=== PATIENT | male | born 1970 ===

== ENCOUNTER 2018-01-13 12:22 | Emergency (ER) | payer MEDICAID ==
[2018-01-13 12:35] VITALS: BP 135/90; PULSE 100; RESP 18; TEMP 97.9; O2SAT 96
--- NOTE | 2018-01-13 13:07 | C.PDOC ---
History Of Present Illness 47 y/o male presents to the ER requesting detox from heroin. Patient states that he last used heroin 1 hour MOTOR BOSS. Patient does not have any physical complaints. Of note, patient is awake and alert. Time Seen by Provider: 01/13/18 12:35 Chief Complaint (Nursing): Substance Abuse History Per: Patient History/Exam Limitations: no limitations Past Medical History Reviewed: Historical Data, Nursing Documentation, Vital Signs Vital Signs: Last Vital Signs Temp 97.9 F 01/13/18 12:31 Pulse 100 H 01/13/18 12:31 Resp 18 01/13/18 12:31 BP 135/90 01/13/18 12:31 Pulse Ox 96 01/13/18 13:36 - Medical History PMH: Denies: Diabetes, Hepatitis, HIV, HTN, Seizures, Sexually Transmitted Disease Other Surgeries: Hx of surgeries - [facility] Procedures DETOXIFICATION SERVICES FOR SUBSTANCE ABUSE TREATMENT (10/02/16) GROUP SUPERVISOR HOUSECLEANER FOR SUBSTANCE ABUSE TREATMENT, PSYCHOEDUCATION (10/02/16) INJECT/INFUSE NEC (06/26/13) Family History: States: No Known Family Hx - Social History Hx Tobacco Use: No Hx Alcohol Use: No Hx Substance Use: Yes - Immunization History Hx Tetanus Toxoid Vaccination: No Hx Influenza Vaccination: Yes Hx Pneumococcal Vaccination: No Review Of Systems Except As Marked, All Systems Reviewed And Found Negative. Physical Exam - Physical Exam Appears: No Acute Distress, Other (awake and alert, ambulatory) Skin: Normal Color, Warm Head: Atraumatic, Normacephalic Eye(s): bilateral: Normal Inspection Nose: Normal Oral Mucosa: Moist Neck: Supple Chest: Symmetrical Cardiovascular: Rhythm Regular Respiratory: Normal Breath Sounds, No Accessory Muscle Use, No Rales, No Rhonchi , No Wheezing Extremity: Normal ROM Neurological/Psych: Oriented x3, Normal Speech, Normal Motor, Normal Sensation ED Course And Treatment O2 Sat by Pulse Oximetry: 96 (RA) Pulse Ox Interpretation: Normal Progress Note: Patient has been informed that there are no detox beds available. Patient has been told to return to ER at a later date for detox. Disposition - Disposition Referrals: [facility] at [facility] [Outside] Disposition: HOME/ ROUTINE Condition: STABLE Additional Instructions: RETURN TO ER AT LATER DATE TO TRY FOR DETOX OR CALL FOR PRESCREENING [phone] Instructions: Drug Abuse and Drug Addiction (DC) Forms: [employer] (Indian) Print Language: OMANI - Clinical Impression Clinical Impression: Heroin dependence - Scribe Statement The provider has reviewed the documentation as recorded by the Chalinoibe Carlos Paiz Provider Attestation: All medical record entries made by the Chalinoibpapo were at my direction and personally dictated by me. I have reviewed the chart and agree that the record accurately reflects my personal performance of the history, physical exam, medical decision making, and the department course for this patient. I have also personally directed, reviewed, and agree with the discharge instructions and disposition.
--- NOTE | 2018-01-13 13:11 | C.PDOC ---
Time Seen by Provider: 01/13/18 12:35 Chief Complaint (Nursing): Substance Abuse Past Medical History Vital Signs: Last Vital Signs Temp 97.9 F 01/13/18 12:31 Pulse 100 H 01/13/18 12:31 Resp 18 01/13/18 12:31 BP 135/90 01/13/18 12:31 Pulse Ox 96 01/13/18 14:40 - Medical History PMH: Denies: Diabetes, Hepatitis, HIV, HTN, Seizures, Sexually Transmitted Disease - [facility] Procedures DETOXIFICATION SERVICES FOR SUBSTANCE ABUSE TREATMENT (10/02/16) GROUP DIE MOUNTER FOR SUBSTANCE ABUSE TREATMENT, PSYCHOEDUCATION (10/02/16) INJECT/INFUSE NEC (06/26/13) Family History: States: Unknown Family Hx - Social History Hx Tobacco Use: No Hx Alcohol Use: No Hx Substance Use: Yes - Immunization History Hx Tetanus Toxoid Vaccination: No Hx Influenza Vaccination: Yes Hx Pneumococcal Vaccination: No ED Course And Treatment O2 Sat by Pulse Oximetry: 96 Disposition Counseled Patient/Family Regarding: Diagnosis, Need For Followup - Disposition Referrals: [facility] at [facility] [Outside] Disposition: HOME/ ROUTINE Disposition Time: 13:10 Condition: STABLE Additional Instructions: RETURN TO ER AT LATER DATE TO TRY FOR DETOX OR CALL FOR PRESCREENING Instructions: Drug Abuse and Drug Addiction (DC) Forms: [employer] (Citizen Of [place]) Print Language: K[place]I - POA Present On Arrival: None - Clinical Impression Clinical Impression: Heroin dependence
== END 2018-01-13 13:40 | disposition home or self-care (01) ==
LOC: C.ER 12:22
DX: F11.20 Opioid dependence, uncomplicated (principal)

== ENCOUNTER 2018-02-19 09:14 | Inpatient (IN) | payer MEDICAID ==
--- NOTE | 2018-02-19 10:06 | C.PDOC ---
History Of Present Illness Patient presents for Detox fron Heroin. Patient last used prior to arrival using 7-8 bags per day since november. Denies fever Time Seen by Provider: 02/19/18 09:49 Chief Complaint (Nursing): Substance Abuse History Per: Patient History/Exam Limitations: no limitations Onset/Duration Of Symptoms: Unknown Modifying Factor(s): Narcotics Severity: Mild Past Medical History Reviewed: Historical Data, Nursing Documentation, Vital Signs Vital Signs: Last Vital Signs Temp 98.6 F 02/19/18 16:27 Pulse 82 02/19/18 16:27 Resp 18 02/19/18 16:27 BP 148/91 H 02/19/18 16:27 Pulse Ox 99 02/19/18 16:27 - Medical History PMH: No Chronic Diseases Denies: Hepatitis, HIV, HTN Surgical History: No Surg Hx - [facility] Procedures DETOXIFICATION SERVICES FOR SUBSTANCE ABUSE TREATMENT (10/02/16) GROUP SURVEILLANCE MONITOR FOR SUBSTANCE ABUSE TREATMENT, PSYCHOEDUCATION (10/02/16) INJECT/INFUSE NEC (06/26/13) Family History: States: No Known Family Hx - Social History Hx Tobacco Use: No Hx Alcohol Use: No Hx Substance Use: Yes - Immunization History Hx Tetanus Toxoid Vaccination: No Hx Influenza Vaccination: Yes Hx Pneumococcal Vaccination: No Review Of Systems Constitutional: Negative for: Fever Gastrointestinal: Positive for: Nausea Physical Exam - Physical Exam Appears: Well, Non-toxic Skin: Normal Color Head: Atraumatic Throat: Normal Neck: Normal Chest: Symmetrical Cardiovascular: Rhythm Regular Respiratory: Normal Breath Sounds Gastrointestinal/Abdominal: Normal Exam Extremity: Normal ROM Neurological/Psych: Oriented x3 Gait: Steady ED Course And Treatment - Laboratory Results Result Diagrams: 02/19/18 10:28 02/19/18 10:28 Lab Interpretation: Normal O2 Sat by Pulse Oximetry: 97 Pulse Ox Interpretation: Normal Progress Note: Patient evaluated by crisis team and request admission to detox Reassessment Condition: Unchanged - Physician Consult Information Physician Contacted: Ana M Adames Outcome Of Conversation: admit Disposition Discussed With : Ana M Adames Doctor Will See Patient In The: Hospital - Disposition Disposition: HOSPITALIZED Disposition Time: 11:30 Condition: STABLE - POA Present On Arrival: None - Clinical Impression Clinical Impression: Drug abuse Decision To Admit - Pt Status Changed To: Hospital Disposition Of: Inpatient - Admit Certification Admit to Inpatient:: After my assessment, the patient will require hospitalization for at least two midnights. This is because of the severity of symptoms shown, intensity of services needed, and/or the medical risk in this patient being treated as an outpatient. - InPatient: Physician Admission Certification: I certify that this patient requires 2 or more midnights of care for the following reason:: opioid abuse - . Bed Request Type: Detox Admitting Physician: Omkar Villalobos Patient Diagnosis: Drug abuse
[2018-02-19 10:33] LABS: BASO # 0.1 K/uL (0.0-0.2); BASO % 0.7 % (0.0-2.0); EOS # 0.1 K/uL (0.0-0.7); EOS % 1.9 % (0.0-4.0); HEMOGLOBIN 13.5 g/dL (12.0-18.0); LYMPH # 2.1 K/uL (1.0-4.3); LYMPH % 30.2 % (20.0-40.0); MEAN CELL VOLUME 87.4 fL (80.0-94.0); MEAN CORPUSCULAR HEMOGLOBIN 30.2 pg (27.0-31.0); MEAN CORPUSCULAR HGB CONC 34.6 g/dL (33.0-37.0); MEAN PLATELET VOLUME 8.4 fL (7.2-11.7); MONO # 0.5 K/uL (0.0-0.8); MONO % 7.2 % (0.0-10.0); NEUT # 4.3 K/uL (1.8-7.0); RBC 4.45 Mil/uL (4.40-5.90); RED CELL DISTRIBUTION WIDTH 13.7 % (11.5-14.5); WHITE BLOOD COUNT 7.1 K/uL (4.8-10.8)
[2018-02-19 10:36] LABS: SQUAMOUS EPITHIAL < 1 /hpf (0-5); URINE BILIRUBIN NEGATIVE (NEGATIVE); URINE BLOOD NEGATIVE (NEGATIVE); URINE CLARITY Clear (Clear); URINE COLOR Yellow (YELLOW); URINE GLUCOSE (UA) NORMAL (Normal); URINE LEUKOCYTE ESTERASE NEG Leu/uL (Negative); URINE PROTEIN NEGATIVE (NEGATIVE)
[2018-02-19 10:50] LABS: ALB/GLOB RATIO 1.1 (1.0-2.1); ALBUMIN 4.1 g/dL (3.5-5.0); ALT/SGPT 38 U/L (21-72); AST/SGOT 29 U/L (17-59); BLOOD UREA NITROGEN 16 mg/dL (9-20); CALCIUM 9.2 mg/dl (8.6-10.4); GFR AFRICAN-AMERICAN > 60; GFR NON-AFRICAN AMERICAN > 60
[2018-02-19 10:54] LABS: BARBITURATES, UR NEGATIVE (NEGATIVE); BENZODIAZEPINES, UR NEGATIVE (NEGATIVE); PHENCYCLIDINE, UR NEGATIVE (NEGATIVE)
[2018-02-19 10:55] LABS: OPIATES, UR POSITIVE (NEGATIVE)
--- NOTE | 2018-02-19 13:10 | PCM.BM ---
<So Lao - Last Filed: 02/19/18 13:09> Treatment Plan Problems - Problems identified on initial assessmt potential for opiate withdrawals Date Initiated: 02/19/18 Assessment reference: NA Status: Active Treatment assets and liabiliti Patient Assests: adapts well, cooperative, insightful, motivated, ADL independent, physically healthy, negotiates basic needs Patient Liabilities: substance abuse - Milieu Protocol Maintain good personal hygiene: daily Encourage regular showers, daily Remind patient to perform daily oral care, daily Assist patient to perform ADL's Conduct patient checks and document Observation sheet: Q15 minutes Maintain personal safety: every shift Educate patient to report safety concerns to staff, every shift Monitor environment for contraband/sharps Medication safety: Monitor for expected outcome, potential side effects: every shift, Assess barriers to learning: every shift, Assess readiness for medication education: every shift <Ana M Adames - Last Filed: 02/19/18 13:43> - Diagnosis (1) Opioid use disorder, severe, dependence Status: Acute Interventions: 02/19/18 13:43 * Assess 7x/week regarding severity of withdrawal * Educate regarding risks, benefits, side effects and alternatives of medications * Use Motivational Interviewing for abstinence * Use CBT for relapse prevention * Medication management for withdrawal symptoms * Encourage medication assisted treatment *
[2018-02-19] MEDS ORDERED: Aluminum Hydroxide/Magnesium Hydroxide Susp (30 mL) PO PRN (13:12)
--- NOTE | 2018-02-19 13:12 | PCM.PSYCH ---
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 Patient was last at [facility] in early 2016. He went to [place] [facility] and stayed clean for 9 months and has been using the last 3 months again. He blames quitting meetings for his relapse. Patient states that he has been using 6-8 bags of IV heroin a day with his last use being this morning. Pt states that his first use was 20 years ago, and his longest sobriety was 3 years which he maintained by attending NA meetings. Pt denies benzodiazepine use, alcohol, cocaine, painkillers, and other illicit substance abuse. Pt admits to smoking 1 pack of cigarettes per day. Pt states that he has been to 9 detox treatments in the past, 4 rehabs, and 2 methadone clinics. Pt tried Suboxone maintenance one time but states that it made him feel "sick" Patient currently has some withdrawal symptoms due to recent heroin use this morning. He says he could never stop outside. Past Psych Hx: Denies Family Hx: Denies substance abuse and psychiatric conditions in family Medical hx: herniated disk in back Allergies: NKDA Social History: Lives with GF in a home in [place]. Legal Hx: Denies legal issues now but had drug-related arrests in the past Past Psychiatric History - Past Psychiatric History Previous Treatment History: None Pertinent Medical Hx (Current Medical&Sleep Prob, Allergies): Allergies Allergy/AdvReac Type Severity Reaction Status Date / Time No Known Allergies Allergy Verified 12/13/16 10:24 No Known Home Med 01/13/18 Review of Systems - Neurological Neurological: UNREMARKABLE - Psychiatric Psychiatric: Abnormal Sleep Pattern, Anxiety, Difficulty Concentrating. absent : Depression, Hallucinations, Homicidal Ideation, Hopelessness, Irritability, Suicidal Ideation Mental Status Examination - Personal Presentation Personal Presentation: Looks older than stated age - Affect Affect: Constricted - Motor Activity Motor Activity: Calm - Reliability in Providing Information Reliability in Providing Information: Good - Speech Speech: Organized - Mood Mood: Anxious - Formal Thought Process Formal Thought Process: No Impairment - Cognitive Functions Orientation: Person, Place, Situation, Time Sensorium: Alert Estimate of Intelligence: Average Judgement: Intact, as evidence by: Insight regarding need for hospitalization Memory: Recent intact, as evidence by: Ability to recall events of the day, Remote intact, as evidenced by: Abilit to recall sig. life events - Risk Risk: Withdrawal, Diminished functioning - Strength & Assets Inventory Strength & Assets Inventory: Cooperative - Limitations Limitations: Other DSM 5 DX - DSM 5 DSM 5 Diagnosis: Opioid Withdrawal, unspecified Opioid use disorder, severe Tobacco use d/o- severe - Recommended/Plan of Treatment Treatment Recommendations and Plan of Treatment: Opioid Withdrawal, unspecified Start Methadone taper Monitor for withdrawals Start PRN medications CBT Support and Psychoeducation Attend groups and activities Use KS for abstinence Opioid use disorder, severe CBT Support and Psychoeducation Attend groups and activities Use KS for abstinence Tobacco use disorder Nicotine patch refused KS for Abstinence 34 min Projected ELOS: 5 days Prognosis: good with treatment Discharge Plan and Discharge Criteria: IOP - Smoking Cessation Smoking Cessation Initiated: Yes
--- NOTE | 2018-02-20 22:04 | PCM.PYCHPN ---
Psychiatric Progress Note - Psychiatric Progress Note Patient seen today, length of contact: 17 min Patient Chief Complaint: "I am OK today" Problems Identified/Issues Discussed: The pt is seen, chart reviewed, case discussed with staff. Support given, CBT and OH used briefly No new symptoms reported, improving slowly and needs more time No SEs from medications, risks discussed. After care discussed Medication Change: Yes (etox changes daily) Medical Record Reviewed: Yes Mental Status Examination - Cognitive Function Orientation: Person, Place, Situation, Time Memory: Intact Attention: WNL Concentration: WNL Association: WNL Fund of Knowledge: WNL - Mood Mood: Anxious - Affect Affect: Constricted - Speech Speech: Appropriate - Formal Thought Process Formal Thought Process: No Impairment - Suicidal Ideation Suicidal Ideation: No - Homicidal Ideation Homicidal Ideation: No Goal/Treatment Plan - Goal/Treatment Plan Need for Continued Stay: Discharge may exacerbated symptoms, Severe functional impairment Progress Toward Problem(s) and Goals/Treatment Plan: Opioid Withdrawal, unspecified Start Methadone taper Monitor for withdrawals Start PRN medications CBT Support and Psychoeducation Attend groups and activities Use OH for abstinence Opioid use disorder, severe CBT Support and Psychoeducation Attend groups and activities Use OH for abstinence Tobacco use disorder Nicotine patch refused OH for Abstinence
--- NOTE | 2018-02-21 11:59 | PCM.PYCHPN ---
Psychiatric Progress Note - Psychiatric Progress Note Patient seen today, length of contact: 16 min Patient Chief Complaint: "I am fine" Problems Identified/Issues Discussed: The pt is seen, chart reviewed, case discussed with staff. The pt is compliant with medications and reports no side-effects. Symptoms are improving but needs more time to stabilize. After care discussed, support and psychoeducation given. Medication Change: Yes (detox changes daily) Medical Record Reviewed: Yes Mental Status Examination - Cognitive Function Orientation: Person, Place, Situation, Time Memory: Intact Attention: WNL Concentration: WNL Association: WNL Fund of Knowledge: WNL - Mood Mood: Anxious - Affect Affect: Constricted - Speech Speech: Appropriate - Formal Thought Process Formal Thought Process: No Impairment - Suicidal Ideation Suicidal Ideation: No - Homicidal Ideation Homicidal Ideation: No Goal/Treatment Plan - Goal/Treatment Plan Need for Continued Stay: Discharge may exacerbated symptoms, Severe functional impairment Progress Toward Problem(s) and Goals/Treatment Plan: Opioid Withdrawal, unspecified Start Methadone taper Monitor for withdrawals Start PRN medications CBT Support and Psychoeducation Attend groups and activities Use [place] for abstinence Opioid use disorder, severe CBT Support and Psychoeducation Attend groups and activities Use VA for abstinence Tobacco use disorder Nicotine patch refused [place] for Abstinence
[2018-02-22 10:15] VITALS: RESP 20
--- NOTE | 2018-02-22 11:52 | PCM.PYCHPN ---
Psychiatric Progress Note - Psychiatric Progress Note Patient seen today, length of contact: 16 min Medication Change: Yes (detox changes daily) Medical Record Reviewed: Yes Mental Status Examination - Cognitive Function Orientation: Person, Place, Situation, Time Memory: Intact Attention: WNL Concentration: WNL Association: WNL Fund of Knowledge: WNL - Mood Mood: Anxious - Affect Affect: Constricted - Speech Speech: Appropriate - Formal Thought Process Formal Thought Process: No Impairment - Suicidal Ideation Suicidal Ideation: No - Homicidal Ideation Homicidal Ideation: No Goal/Treatment Plan - Goal/Treatment Plan Need for Continued Stay: Discharge may exacerbated symptoms, Severe functional impairment
[2018-02-22 13:30] VITALS: O2SAT 98
[2018-02-23 09:10] VITALS: BP 127/86; PULSE 85; TEMP 97.6
--- NOTE | 2018-02-23 10:40 | PCM.PYCHDC ---
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 Patient was last at [facility] in early 2017. He went to [place] [facility] and stayed clean for 9 months and has been using the last 3 months again. He blames quitting meetings for his relapse. Patient states that he has been using 6-8 bags of IV heroin a day with his last use being this morning. Pt states that his first use was 20 years ago, and his longest sobriety was 3 years which he maintained by attending NA meetings. Pt denies benzodiazepine use, alcohol, cocaine, painkillers, and other illicit substance abuse. Pt admits to smoking 1 pack of cigarettes per day. Pt states that he has been to 9 detox treatments in the past, 4 rehabs, and 2 methadone clinics. Pt tried Suboxone maintenance one time but states that it made him feel "sick" Patient currently has some withdrawal symptoms due to recent heroin use this morning. He says he could never stop outside. Past Psych Hx: Denies Family Hx: Denies substance abuse and psychiatric conditions in family Consultations:: List each consultation separately and include: 1. Reason for request. 2. Findings. 3. Follow-up Summary of Hospital Course include:: 1. Description of specific treatment plan utilized for patients during their course of treatmen. 2. Summarize the time- course for resolution of acute symptoms and/or regressed behaviors. 3. Describe issues identified and worked on during hospitalization. 4. Describe medication utilized. 5. Describe medical problems identified and treated. 6. Reassessment of suicide risk - Final Diagnosis (DSM 5) Condition upon Discharge: STABLE DSM 5: Opioid Withdrawal, unspecified Opioid use disorder, severe Tobacco use d/o- severe Disposition: HOME/ ROUTINE
== END 2018-02-23 11:49 | disposition home or self-care (01) | DRG 745 ==
LOC: C.ER 09:14 → C.7D 11:32
PROVIDERS: ADMIT Psychiatry & Neurology Psychiatry; ATTEND Psychiatry & Neurology Psychiatry
PROC: HZ2ZZZZ Detoxification Services for Substance Abuse Treatment (ICD-10-PCS; principal; 2018-02-19)
DX: F11.23 Opioid dependence with withdrawal (principal); F17.210 Nicotine dependence, cigarettes, uncomplicated

== ENCOUNTER 2018-09-09 21:49 | Emergency (ER) | payer MEDICAID, OTHER ==
[2018-09-09 21:58] VITALS: RESP 20
--- NOTE | 2018-09-09 22:52 | C.PDOC ---
History Of Present Illness Patient reports 6 hour history of right sided headache, states that he took two ibuprofen and now the headache has almost completely subsided. No dizziness, nausea, vomiting, syncope, vision changes, focal extremity weakness, or any other neurological symptoms. Also states that he uses heroin and would like detox. Time Seen by Provider: 09/09/18 22:29 Chief Complaint (Nursing): Headache Past Medical History Vital Signs: Last Vital Signs Temp 98.7 F 09/09/18 21:54 Pulse 80 09/09/18 21:54 Resp 20 09/09/18 21:54 BP 142/96 H 09/09/18 21:54 Pulse Ox 98 09/09/18 21:54 - Medical History PMH: Denies: Diabetes, Hepatitis, HIV, HTN, Seizures, Sexually Transmitted Disease - [facility] Procedures DETOXIFICATION SERVICES FOR SUBSTANCE ABUSE TREATMENT (02/19/18) GROUP WIND SITE MANAGER FOR SUBSTANCE ABUSE TREATMENT, PSYCHOEDUCATION (10/02/16) INJECT/INFUSE NEC (06/26/13) Family History: States: Unknown Family Hx - Social History Hx Tobacco Use: No Hx Alcohol Use: No Hx Substance Use: Yes - Immunization History Hx Tetanus Toxoid Vaccination: No Hx Influenza Vaccination: Yes Hx Pneumococcal Vaccination: No Review Of Systems Except As Marked, All Systems Reviewed And Found Negative. Constitutional: Negative for: Fever, Chills Cardiovascular: Negative for: Chest Pain Respiratory: Negative for: Shortness of Breath Gastrointestinal: Negative for: Nausea, Vomiting Neurological: Positive for: Headache. Negative for: Weakness, Numbness, Change in Speech, Altered Mental Status Psych: Negative for: Suicidal ideation Physical Exam - Physical Exam Appears: Well, Non-toxic, No Acute Distress Skin: Normal Color, Warm, Dry Head: Atraumatic Eye(s): bilateral: Normal Inspection Oral Mucosa: Moist Cardiovascular: Rhythm Regular Respiratory: Normal Breath Sounds Gastrointestinal/Abdominal: Normal Exam Extremity: Normal ROM Neurological/Psych: Oriented x3, Normal Speech, Normal Motor, Normal Sensation Gait: Steady ED Course And Treatment O2 Sat by Pulse Oximetry: 98 Medical Decision Making Medical Decision Making: Patient states headache is almsot completely gone. Requesting detox however no beds currently available. Provided list of other detox facilities. Disposition - Disposition Disposition: HOME/ ROUTINE Disposition Time: 22:53 Condition: GOOD Additional Instructions: CARMELO OGRDON, thank you for letting us take care of you today. Your provider was Amy Sapp MD and you were treated for HIGH BLOOD PRESSURE/HEADACHE. The emergency medical care you received today was directed at your acute symptoms. If you were prescribed any medication, please fill it and take as directed. It may take several days for your symptoms to resolve. Return to the Emergency Department if your symptoms worsen, do not improve, or if you have any other problems. Please contact your doctor or call one of the physicians/clinics you have been referred to that are listed on the Patient Visit Information form that is included in your discharge packet. Bring any paperwork you were given at discharge with you along with any medications you are taking to your follow up visit. Our treatment cannot replace ongoing medical care by a primary care provider outside of the emergency department. Thank you for allowing the [facility] team to be part of your care today. If you had an X-Ray or CT scan: A Radiologist will review the ED reading if any change in treatment is needed we will contact you. If you had a blood, urine, or wound culture: It will take several days for the results, if any change in treatment is needed we will contact you. If you had an STI test: It will take 48 hours for the results. Please call after 1 week if you have not heard back. Instructions: Headache, Adult (DC), Drug Abuse and Drug Addiction (DC) - Clinical Impression Clinical Impression: Headache, Drug abuse
[2018-09-09 23:31] VITALS: BP 140/80; PULSE 81; TEMP 98; O2SAT 99
== END 2018-09-09 23:30 | disposition home or self-care (01) ==
LOC: C.ER 21:49
DX: R51 Headache (principal); F19.10 Other psychoactive substance abuse, uncomplicated